=== PATIENT | male | born 1975 | race Two or more races ===

== ENCOUNTER 2016-12-03 11:49 | Emergency (ER) | payer SELFPAY ==
[2016-12-03 11:53] VITALS: BP 145/79; BMI 41.8
--- NOTE | 2016-12-03 12:38 | DR.ABDMALE ---
HPI - Time seen Time seen: 12:35 - PCP Primary Care Physician: PEACE - HPI comment HPI Comment: PATIENT SAID PAIN ASSOCIATED WITH NAUSEA. NO FEVER OR DYSURIA.DENIES MELENA OR HEMATEMESIS. NO FEVER. TOOK TOMS, NO IMPROVEMENT. - Complaint Chief Complaint Doctors Comments: EPIGASTRIC PAIN TIMES FEW HOURS. Chief Complaint:: EPIGASTRIC PAIN THAT BEGAN THIS MORNING. - Reviewed Nurses Notes Review: Yes - Mode of arrival Mode of Arrival: Ambulatory - Timing Onset of Chief Complaint: 12/03/16 Came on: Suddenly - Duration Duration: Constant Duration: Hours - Location Location: Epigastric - Severity Severity: Moderate - Quality Quality: Sharp - Context Onset: Suddenly History of: None - Modifying factors Worsening Factors: Nothing Improving Factors: Nothing - Associated signs and symptoms Associated Signs and Symptoms: None PMH - PMH Past Medical History: Yes Past Medical History: Hypertension Past Surgical History: No Surgical History: No History - Family History History of Family Medical Conditions: No - Social History Does patient currently use any type of tobacco product: No Have you used tobacco products in the last 12 months: No Type of Tobacco Use: None Does any household member use tobacco: No Alcohol Use: Occasionally Do you use any recreational Drugs:: No Lives With: Spouse Lives Where: Home - infectious screening In the last 2 months have you had wt loss of >10#?: NO Have you had fever, night sweats or hemotysis?: No Have you traveled outside the country in the last 6 months?: No Isolation: Standard ROS - Review of Systems Constitutional: No Symptoms Reported Eyes: No Symptoms Reported ENTM: No Symptoms Reported Respiratoy: No Symptoms Reported Cardiovascular: No Symptoms Reported Gastrointestinal/Abdominal: Abdominal Pain Genitourinary: No Symptoms Reported Neurological: No Symptoms Reported Musculoskeletal: No Symptoms Reported Integumentary: No Symptoms Reported Hematologic/Lymphatic: No Symptoms Reported Endocrine: No Symptoms Reported All Other Systems: Reviewed and Negative PE - Vital Signs Vital Signs: Temp Pulse Resp BP Pulse Ox 12/03/16 11:50 97.9 F 78 17 145/79 96 - General Limitations: No Limitations General Appearance: Alert - Head Head Exam: Normal Inspection - Eyes Eye exam: Normal Appearance - ENT ENT Exam: Normal External Ear Exam - Neck Neck Exam: Trachea Midline - Chest Chest Inspection: Symmetric Chest Wall Rise - Respiratory Respiratory Exam: Normal Lung Sounds Bilat Respiratory Exam: Bilateral Clear to Auscultation - Cardiovascular Cardiovascular Exam: Regular Rate, Normal Rhythm, Normal Heart Sounds - Abdominal Exam Abdominal Exam: Normal Bowel Sounds, Soft, Tenderness Abdominal Tenderness: Epigastrium - Rectal Rectal Exam: Deferred - Back Back Exam: Normal Inspection - Extremeties Extremities Exam: Normal Inspection - Exam: Male: Deferred - Neurologic Neurological Exam: Alert, Oriented X3 - Psychiatric Psychiatric Exam: Normal Affect, Normal Mood - Skin Skin Exam: Normal Color MDM - Differential Diagnosis Differential Diagnosis: Bowel Obstruction, Cholcystitis, Cholelethiasis, Esophagitis, Gastritus/PUD, Pancreatitis, Urinary tract infection, Urolithiasis Course - Education/Counseling Education/Counseling: Patient, Education Educated On: Diagnosis, Needs for Follow Up ROR - Labs Reviewed Laboratory Results Reviewed?: Yes Result Diagrams: 12/03/16 13:00 12/03/16 13:00 Laboratory: WBC 13.3 X10^3/uL (3.6-10.0) H 12/03/16 13:00 RBC 5.09 X10^6/uL (4.7-6.0) 12/03/16 13:00 Hgb 14.7 g/dL (13.5-18.0) 12/03/16 13:00 Hct 42.8 % (42.0-54.0) 12/03/16 13:00 MCV 84.1 fL (80.0-100.0) 12/03/16 13:00 MCH 28.8 pg (27.0-34.0) 12/03/16 13:00 MCHC 34.3 g/dL (33.0-35.0) 12/03/16 13:00 RDW 13.4 % (11.6-16.5) 12/03/16 13:00 Plt Count 219 X10^3/uL (150.0-450.0) 12/03/16 13:00 MPV 9.5 fL (7.4-11.0) 12/03/16 13:00 Neut % 80.8 % (42.0-75.0) H 12/03/16 13:00 Lymph % 13.2 % (21.0-51.0) L 12/03/16 13:00 Page % 4.4 % (0.0-13.0) 12/03/16 13:00 Eos % 0.8 % (0.9-2.9) L 12/03/16 13:00 Baso % 0.8 % (0.2-1.0) 12/03/16 13:00 Neut # 10.7 x10^3/uL (2.2-4.8) H 12/03/16 13:00 Lymph # 1.8 X10^3/uL (1.3-2.9) 12/03/16 13:00 Page # 0.6 x10^3/uL (0.3-0.8) 12/03/16 13:00 Eos # 0.1 x10^3/uL (0.0-0.2) 12/03/16 13:00 Baso # 0.1 X10^3/uL (0.0-0.1) 12/03/16 13:00 Absolute Nucleated RBC 0.0 /100WBC 12/03/16 13:00 Sodium 139 mmol/L (136-145) 12/03/16 13:00 Corrected Sodium TNP 12/03/16 13:00 Potassium 4.4 mmol/L (3.5-5.1) 12/03/16 13:00 Chloride 104 mmol/L (98-107) 12/03/16 13:00 Carbon Dioxide 26.5 mmol/L (21-32) 12/03/16 13:00 BUN 14 mg/dL (7-18) 12/03/16 13:00 Creatinine 0.84 mg/dL (0.70-1.30) 12/03/16 13:00 Est GFR (MDRD) Af Amer > 60 (>60) 12/03/16 13:00 Est GFR (MDRD) Non-Af > 60 (>60) 12/03/16 13:00 Glucose 110 mg/dL (65-99) H 12/03/16 13:00 Calcium 9.2 mg/dL (8.5-10.1) 12/03/16 13:00 Corrected Calcium TNP 12/03/16 13:00 Total Bilirubin 0.40 mg/dL (0.2-1.0) 12/03/16 13:00 AST 20 Units/L (15-37) 12/03/16 13:00 ALT 47 Units/L (12-78) 12/03/16 13:00 Alkaline Phosphatase 92 Units/L (46-116) 12/03/16 13:00 Total Protein 7.8 g/dL (6.4-8.2) 12/03/16 13:00 Albumin 4.0 g/dL (3.4-5.0) 12/03/16 13:00 Globulin 3.8 g/dL (2.5-4.5) 12/03/16 13:00 Albumin/Globulin Ratio 1.1 Ratio (1.1-2.1) 12/03/16 13:00 Amylase 248 Units/L (25-115) H 12/03/16 13:00 Lipase 3617 Units/L (73-393) H 12/03/16 13:00 H. pylori IgG Antibody Negative (NEGATIVE) 12/03/16 13:00 - XRAY XRAY Interpreted by: Radiologist XRAY Findings: REPORT DISCUSS WITH PATIENT. - Diagnosis Discharge Problem: Pancreatitis Qualifiers: Chronicity: acute Pancreatitis type: unspecified pancreatitis type Acute pancreatitis complication: unspecified Qualified Code(s): K85.90 - Acute pancreatitis without necrosis or infection, unspecified - Discharge Plan Disposition: 01 HOME, SELF-CARE Condition: Stable Prescriptions: Acetaminophen W/ Codeine [Tylenol/Codeine #3 300-30 mg] 1 tab PO Q6H PRN #15 tab PRN Reason: Pain Ranitidine HCl [ZANTAC TAB 150 MG *] 150 mg PO BID #60 tab - Follow ups/Referrals Follow ups/Referrals: FRED PENG [STAFF PHYSICIAN] - 2 days [facility],None [Primary Care Provider] - 2 days - Instructions Instructions: Acute Pancreatitis, [id number] Additional Instructions: RETURN TO ED IF WORSE.
[2016-12-03] MEDS ORDERED: LEVSIN/MAALOX/LIDOC VISC PO ONE (12:39)
[2016-12-03] MEDS ORDERED: PEPCID TAB 20 MG PO SCH (13:00)
[2016-12-03] MEDS ORDERED: LEVSIN/MAALOX/LIDOC VISC ONE (13:02)
[2016-12-03] MEDS ORDERED: PEPCID TAB 20 MG ONE (13:02)
[2016-12-03 13:26] LABS: BASOPHILS # (AUTO) 0.1 X10^3/uL (0.0-0.1); BASOPHILS % (AUTO) 0.8 % (0.2-1.0); EOSINOPHILS # (AUTO) 0.1 x10^3/uL (0.0-0.2); EOSINOPHILS % (AUTO) 0.8 % (0.9-2.9); HEMATOCRIT 42.8 % (42.0-54.0); HEMOGLOBIN 14.7 g/dL (13.5-18.0); LYMPHOCYTES # (AUTO) 1.8 X10^3/uL (1.3-2.9); LYMPHOCYTES % (AUTO) 13.2 % (21.0-51.0); MEAN CORPUSCULAR HEMOGLOBIN 28.8 pg (27.0-34.0); MEAN CORPUSCULAR HGB CONC 34.3 g/dL (33.0-35.0); MEAN CORPUSCULAR VOLUME 84.1 fL (80.0-100.0); MEAN PLATELET VOLUME 9.5 fL (7.4-11.0); MONOCYTES # (AUTO) 0.6 x10^3/uL (0.3-0.8); MONOCYTES % (AUTO) 4.4 % (0.0-13.0); NEUTROPHILS # (AUTO) 10.7 x10^3/uL (2.2-4.8); NEUTROPHILS % (AUTO) 80.8 % (42.0-75.0); PLATELET COUNT 219 X10^3/uL (150.0-450.0); RED BLOOD COUNT 5.09 X10^6/uL (4.7-6.0); RED CELL DISTRIBUTION WIDTH 13.4 % (11.6-16.5); WHITE BLOOD COUNT 13.3 X10^3/uL (3.6-10.0)
[2016-12-03 13:40] LABS: ALANINE AMINOTRANSFERASE 47 Units/L (12-78); ALKALINE PHOSPHATASE 92 Units/L (46-116); AMYLASE 248 Units/L (25-115); ASPARTATE AMINO TRANSFERASE 20 Units/L (15-37); BLOOD UREA NITROGEN 14 mg/dL (7-18); CALCIUM 9.2 mg/dL (8.5-10.1); CARBON DIOXIDE 26.5 mmol/L (21-32); CHLORIDE 104 mmol/L (98-107); CREATININE 0.84 mg/dL (0.70-1.30); GLUCOSE 110 mg/dL (65-99); SODIUM 139 mmol/L (136-145); TOTAL PROTEIN 7.8 g/dL (6.4-8.2); eGFR BLACK RACES > 60 (>60); eGFR NON BLACK RACES > 60 (>60)
[2016-12-03 13:50] LABS: LIPASE 3617 Units/L (73-393)
--- NOTE | 2016-12-03 14:30 | US ---
STUDY: RIGHT UPPER QUADRANT ABDOMINAL ULTRASOUND HISTORY: Epigastric pain. Comparison: None. Technique: Multiple ngo scale and color flow Doppler images of the right upper quadrant were obtain ed. Findings: The liver is normal in size and echotexture. There is no evidence of focal mass or intrahepatic master e duct dilatation. There is no evidence of cholelithiasis, cholecystitis, or pericholecystic fluid. Gallbladder wall thickness measures 4.9 mm. The common bile duct measures 6.8 mm. The right kidney is normal in size and echogenicity measuring 10.5 x 6.8 x 6.6 cm. Right renal riddhi x measures 2.0 cm. There is no evidence of focal parenchymal mass or cyst. There is no evidence of nephrolithiasis or hydronephrosis. The pancreas is unremarkable. IMPRESSION: 1. Diffuse thickening of the wall of the gallbladder. Clinical correlation is recommended. 2. Would consider nuclear medicine HIDA scan for further evaluation as clinically warranted. Reported By:
== END 2016-12-03 15:41 | disposition home or self-care (01) ==
LOC: ER 12:05
DX: K85.90 Acute pancreatitis without necrosis or infection, unspecified (principal)
CPT/HCPCS: 36415; 76705; 80053; 82150; 83690; 85025; 86677; 99282; 99283